=== PATIENT | male | born 2000 | race Caucasian/White ===

== ENCOUNTER 2020-02-21 16:04 | Emergency (ER) | payer BC, SELFPAY ==
[2020-02-21 16:04] VITALS: BP 135/72; PULSE 75; RESP 18; TEMP 36.8; O2SAT 100; BMI 20.9
--- NOTE | 2020-02-21 16:13 | [facility].EDGENADL ---
ED Disposition Clinical Impression: Right lower quadrant abdominal pain Disposition: Home, Self-Care Condition on Discharge: Good Instructions: DI for Abdominal Pain-Adult Additional Instructions: You may take ibuprofen or Tylenol for pain. You may eat, but after midnight only take clear liquids. If you still have abdominal pain tomorrow morning, return to the emergency department for repeat CT scan and blood work. Return to the emergency department if severe pain, vomiting, or fever. Referrals: Provider,Referral, [Primary Care Provider] - - Critical Care Critical Care Time: No Attestation: On 02/21/20, the high probability of a clinically significant, sudden or life threatening deterioration of the following system(s) required my full and direct attention, intervention and personal management. The time I documented below is in addition to time spent performing reported procedures but includes the following listed in this critical care notation. Medical Decision Making - Don Inquiry Pt receiving controlled substance: No Vital Signs: 02/21/20 16:04 02/21/20 18:35 Temperature 98.3 F Temperature Source Oral Pulse Rate [Right Radial] 75 82 Respiratory Rate 18 16 Blood Pressure [Right Arm] 135/72 125/53 L Blood Pressure Mean [Right Arm] 93 77 Blood Pressure Source [Right Arm] Automatic Cuff Automatic Cuff Blood Pressure Position [Right Arm] Supine Sitting 02 Sat by Pulse Oximetry 100 100 Oxygen Delivery Method Room Air Room Air - Lab Data Lab Results 02/21/20 16:17: Urine Color Yellow, Urine Appearance Clear, Urine pH 6.0, Ur Specific [place] 1.025, Urine Protein Negative, Urine Glucose (UA) Negative, Urine Ketones Negative, Urine Blood Negative, Urine Nitrate Negative, Urine Bilirubin Negative, Urine Urobilinogen 0.2, Ur Leukocyte Esterase Negative, Urine RBC None, Urine WBC Occasional, Ur Squamous Epith Cells None, Urine Bacteria Trace, Urine Mucus 1+, Urine Yeast Occasional 02/21/20 16:25: WBC 7.8, RBC 5.19, Hgb 15.5, Hct 44.7, MCV 86.1, MCH 29.9, MCHC 34.7, RDW 13.1, Plt Count 208, MPV 7.4, Neut % (Auto) 47.5, Lymph % (Auto) 40.7, [place] % (Auto) 7.2, Eos % (Auto) 2.6, Baso % (Auto) 2.0, Neut # (Auto) 3.7, Lymph # (Auto) 3.2, [place] # (Auto) 0.6, Eos # (Auto) 0.2, Baso # (Auto) 0.2 02/21/20 16:25: Sodium 138, Potassium 3.7, Chloride 102, Carbon Dioxide 28, Anion Gap 11.7, BUN 16, Creatinine 1.00, Estimated Creat Clear 114, Estimated GFR 96, Est GFR ( Amer) 116, Glucose 84, Calcium 9.5, Total Bilirubin 1.1, AST 27, ALT 13, Alkaline Phosphatase 44, Total Protein 7.7, Albumin 4.9, Globulin 2.8, Albumin/Globulin Ratio 1.8, Amylase 77, Lipase 66 Result diagrams: 02/21/20 16:25 02/21/20 16:25 Orders (Tests/Meds): ED MEDICATIONS Discontinued Medications Generic Name Dose Route Start Last Admin Trade Name Freq PRN Reason Stop Dose Admin Diatrizoate Meglum/Diatrizoate Sod 30 ml 02/21/20 16:19 02/21/20 16:29 Gastrografin 66%-10% 30ml PO 02/21/20 16:20 30 ml ONCE ONE Administration Ioversol 75 ml 02/21/20 18:13 02/21/20 18:14 Rad-Optiray 350 100ml Vial IV 02/21/20 18:14 75 ml ONCE ONE Administration Protocol Sodium Chloride 1,000 ml 02/21/20 16:18 02/21/20 16:30 Sod Chlor 0.9% 1000ml Bag IV 02/21/20 16:19 1,000 ml BOLUS ONE Administration Sodium Chloride 10 ml 02/21/20 18:13 02/21/20 18:14 Rad-Saline Flush 10ml Syringe IV 02/21/20 18:14 10 ml ONCE ONE Administration - CT Data CT Scan: Abdomen, Pelvis Time Received: 19:[address] Reviewed: Yes: I have viewed the radiologist's interpretation Findings Narrative: Procedure: CT ABDOMEN PELVIS W CON Patient Age:19Y CLINICAL INDICATION: RLQ pain A COMPARISON: No exams were available for comparison TECHNIQUE: : IV contrast: 75 cc Optiray 350 IV contrast utilized//. Oral contrast: Diluted Gastroview contrast also given with patient scanned 90 minutes thereafter A
--- NOTE | 2020-02-21 16:17 | CT_ITS ---
Procedure: CT ABDOMEN PELVIS W CON Patient Age:19Y CLINICAL INDICATION: RLQ pain A COMPARISON: No exams were available for comparison TECHNIQUE: : IV contrast: 75 cc Optiray 350 IV contrast utilized//. Oral contrast: Diluted Gastroview contrast also given with patient scanned 90 minutes thereafter Axial images obtained with sagittal and coronal reformats. All CT scans at the facility use one or more dose reduction, viz: automated exposure control, ma/kV adjustment per patient size (including targeted exams where dose is matched to indication, i.e. head), or iterative reconstruction technique. FINDINGS: Lower thorax: No acute finding lung bases clear Heart normal size-but would note small fluid collection overlying right heart.-. This is most compatible with a small pericardial cyst. It measures up to 3 cm AP, 2.5 cm height, 2 cm transverse. Best seen on axial image 67 Overlying the pericardium with thin fat plane pericardial fat between it and remainder of the heart ABDOMEN.. Liver: No masses or biliary dilatation. Long left lobe liver extends leftward beneath the left hemidiaphragm and superior to the spleen-with this the spleen slightly displaced inferiorly by overlying the left lobe of liver.. Gallbladder: Nondistended. No radio opaque stones.. Common duct normal Pancreas: No inflammatory changes evident. No masses no peripancreatic fluid collections. Spleen: Borderline/minor splenomegaly. Spleen measuring 12.5 cm length, 12.4 cm AP a 5.4 cm wide. Slightly generous splenic vein of for age.. Adrenals: unremarkable tract --- Kidneys/ureters: Unremarkable kidneys normal enhancement with no calculi nor obstruction. Ureters unremarkable. Left kidney. Small benign cyst anterior cortex mid portion left kidney 6 mm, size. Ureters unremarkable-no dilatation nor calculi PELVIS:. Suggestion likely trace comma/scant free fluid at the pelvic basin-this not normal for male but I see no prominent inflammatory changes to account for such. Small prostate as expected.. The urinary bladder appears satisfactory no calculi GI tract---: The Appendix is difficult to visualize. However I see no good evidence of appendicitis at this juncture. What I leave is appendix appears fairly normal diameter with no appreciable inflammation. And certainly no fluid collections RLQ/no focal inflammatory changes evident RLQ..I would note this young patient is fairly thin a and with this relative lack of fat between structures and bowel loops making it more difficult to optimally discern structures at the RLQ and to optimally visualize appendix.-thus if RLQ symptoms should persist or progress follow-up of follow-up scanning would be warranted particularly if other findings or leukocytosis. Stomach: Unremarkable. Residual oral the contrast proximal stomach, with low-density fluid at the distal stomach. Upper normal wall thickness reflects is lack of distension Small Bowel: Minor observations, of there are some bowel loops in the left abdomen borderline wall thickening and diameter Mid And Distal Small Bowel with borderline, upper normal caliber with numerous scattered air-contrast fluid levels.. Nonspecific do a could reflect a minimal enterocolitis changes conceivably. The good progression of oral contrast through the small bowel which speaks against ileus.. Oral contrast does move well through the small bowel and seen passing through normal appearing distal ileum, and terminal ileum upper normal wall thickness of the terminal ileum with note of generous ileocecal valve. No fat stranding or inflammation about the terminal ileum Large Bowel. Generous ileocecal valve. liquid contrast and stool yield air-fl
--- NOTE | 2020-02-21 16:34 | PC.NURSE ---
finished contrast at 1624
[2020-02-21 16:35] LABS: Microscopic, Urine URINE MICROSCOPIC (MICROSCOPIC)
[2020-02-21 16:36] LABS: Basophils # 0.2 K/mm3 (0-0.2); Eosinophils # 0.2 K/mm3 (0.0-0.4); Eosinophils % 2.6 % (0.1-12.0); Hematocrit 44.7 % (42.0-52.0); Hemoglobin 15.5 g/dL (14.1-18.0); Lymphocytes # 3.2 K/mm3 (0.7-4.5); Lymphocytes % 40.7 % (10-50); Mean Corpuscular HGB Conc 34.7 g/dL (31.8-35.4); Mean Corpuscular Hemoglobin 29.9 pg (27.0-31.2); Mean Corpuscular Volume 86.1 fl (80-94); Mean Platelet Volume 7.4 fl (7.4-10.4); Monocytes # 0.6 K/mm3 (0.1-1.0); Monocytes % 7.2 % (1.7-9.3); Neutrophils # 3.7 K/mm3 (1.8-7.8); Neutrophils % 47.5 % (37.0-80.0); Platelet Count 208 K/mm3 (142-424); Red Blood Count 5.19 M/mm3 (4.60-6.20); Red Cell Distribution Width 13.1 % (11.5-17.5); White Blood Count 7.8 K/mm3 (4.5-13.0)
[2020-02-21 16:42] LABS: Appearance,Urine CLEAR (Clear); Bilirubin,Urine Negative (Negative); Blood, Urine Negative (Negative); Color,Urine YELLOW (Yellow); Glucose,Urine (UA) Negative (Negative); Ketones,Urine Negative (Negative); Leukocyte Esterase,Urine Negative (Negative); Nitrate,Urine Negative (Negative); Protein,Urine Negative (Negative); Specific Gravity, Urine 1.025 (1.005-1.030); Urobilinogen,Urine 0.2 EU/dl (0.2)
[2020-02-21 16:44] LABS: Chloride 102 mmol/L (98-107); Potassium 3.7 mmoL/L (3.5-5.1); Sodium 138 mmol/L (136-145)
[2020-02-21 16:47] LABS: Alanine Aminotransferase 13 U/L (12-78); Albumin Level 4.9 g/dl (3.5-5.0); Albumin/Globulin Ratio 1.8 (1.1-1.8); Alkaline Phosphatase 44 U/L (38-126); Amylase 77 U/L (30-110); Anion Gap 11.7 mEq/L (5-15); Aspartate Amino Transferase 27 U/L (17-59); Bilirubin,Total 1.1 mg/dl (0.2-1.3); Blood Urea Nitrogen 16 mg/dl (9-20); Calcium 9.5 mg/dl (8.4-10.2); Carbon Dioxide 28 mmol/L (22.0-30.0); Creatinine Clearance Estimated 114 mL/min (50-200); Estimated Glomerular Filt Rate 96 ml/min (>60); GFR (African American) 116 ML/MIN (>60); Globulin 2.8 g/dL (1.3-3.2); Glucose 84 mg/dl (74-100); Lipase 66 U/L (23-300); Total Protein,Serum 7.7 g/dl (6.3-8.2)
[2020-02-21 16:54] LABS: Bacteria,Urine Trace /lpf; Mucus,Urine 1+ /lpf; WBC,Urine Occasional #/hpf (0-3); Yeast,Urine Occasional /lpf
--- NOTE | 2020-02-21 18:10 | PC.NURSE ---
Pt returned from rad.
[2020-02-21 18:35] VITALS: BP 125/53; PULSE 82; RESP 16; O2SAT 100
[2020-02-21 19:38] VITALS: BP 121/75; PULSE 73; RESP 18; TEMP 36.8; O2SAT 98
== END 2020-02-21 19:42 | disposition home or self-care (01) ==
PROVIDERS: Emergency Provider Emergency Medicine
DX: R10.31 Right lower quadrant pain (principal)
CPT/HCPCS: 74177; 80053; 81001; 82150; 83690; 85025; 96365; 96375; 99283; Q9967